=== PATIENT | male | born 1950 | race Caucasian/White ===

== ENCOUNTER 2016-11-10 15:53 | Outpatient (CLI) ==
--- NOTE | 2016-11-10 17:03 | DI ---
EXAM: Two views of the left knee. History: Left knee pain. Findings: No acute fracture or dislocation. Moderate to severe narrowing of the medial and patello femoral compartments with prominent osteophytes. Moderate narrowing of the lateral compartment. The re is probably chondrocalcinosis as well. Impression: No acute osseous abnormalities. Moderate to severe arthritis.
--- NOTE | 2016-11-10 17:05 | DI ---
EXAM: Two views of the right knee. History: Right knee pain. Findings: Moderate narrowing of the medial compartment with osteophytes. Moderate to severe narrow ing of the patellofemoral compartment with large osteophytes. Well corticated ossific density involv ing the anterior tibial tubercle with adjacent soft tissue swelling. Patellar enthesiopathy. Mild to moderate narrowing of the lateral compartment. Impression: 1. Tricompartmental osteoarthritis, most significant involving the patellofemoral joint. 2. Well corticated ossific density involving the anterior tibial tubercle most likely related to ol d trauma. There is adjacent soft tissue swelling.
== END 2016-11-10 15:54 | disposition home or self-care (01) ==
LOC: RAD 15:53
PROVIDERS: ATTEND Nurse Practitioner
DX: M25.562 Pain in left knee (principal); M25.561 Pain in right knee

== ENCOUNTER 2018-06-01 10:13 | Outpatient (CLI) | payer OTHER ==
--- NOTE | 2018-06-02 05:32 | MRI ---
EXAM: Lumbar spine MRI without contrast. HISTORY: Chronic low back pain. COMPARISON: Lumbar spine radiographs 05/31/2010. TECHNIQUE: Multiplanar, multisequence MR images were acquired of the lumbar spine without contrast. FINDINGS: Conus medullaris ends at T12-L1 and has normal morphology and signal intensity. Five lumb ar-type vertebra are present. There is mild accentuation of the usual lumbar lordosis and 1.5 mm ant erolisthesis of T11 on T12 and L3 on L4, 3.5 mm retrolisthesis of L4 on L5 and 1.1 cm anterolisthesis of L5 on S1 due to chronic bilateral L5 pars interarticularis defects. There is mild hypoplasia of the L5 vertebra that is greatest dorsally. There is mild endplate irregularity at T10-11 and T11-12. There is a diffuse disc osteophyte complex with moderate to marked disc space narrowing that is asy mmetric to the right with mild to moderate endplate irregularity, small chronic Schmorl's nodes and m oderate modic type 1 changes along the right anterolateral endplates. At L5-S1, there is a diffuse d isc osteophyte complex with bilateral far lateral endplate osteophytes, larger on the left which encr oach on both exiting L5 nerves and there is marked posterior disc space narrowing with mild endplate irregularity and modic type 2 endplate changes. Benign intraosseous hemangiomas are present at L1, L 2, L4 and S1. The partially visualized liver and left kidney are unremarkable. There is a possible simple cyst in the upper pole of the right kidney. T11-12: There is anterolisthesis of T11 on T12 and there is a mild diffuse disc bulge with a more fo stephany central component that mildly indents the ventral conus medullaris. Mild bilateral hypertrophic facet arthropathy and ligamentum flavum hypertrophy is present which narrows the posterolateral theca l sac and causes mild spinal stenosis and mild bilateral foraminal stenosis. AP diameter of the thec al sac is 8 mm. T12-L1: The intervertebral disc is normal. A small lobular synovial cyst is present along the poste rior left facet joint. L1-2: The intervertebral disc is normal. There is a minor irregular concavity along the right blayne n of the L1 inferior endplate. There is no central canal stenosis or foraminal stenosis. L2-3: There is a minor disc bulge that may be physiologic and minor focal concavity of the left L2 i nferior endplate. Mild left greater than right facet hypertrophy is present and there is minor left neural foraminal stenosis. L3-4: There is a mild diffuse disc bulge and mild to moderate bilateral hypertrophic facet arthropat hy and ligamentum flavum hypertrophy which narrows the posterolateral thecal sac without spinal steno sis. There is minor right and mild left neural foraminal stenosis. L4-5: There is retrolisthesis of L4 and L5 and there is a moderate diffuse spondylotic disc bulge wi th a probable small left posterolateral disc protrusion that has partially herniated into the left L5 superior endplate. There are right lateral/far lateral endplate osteophytes that narrows the inferi or right neural foramen and encroach on the exiting right L4 nerve. Mild bilateral hypertrophic facet arthropathy and ligamentum flavum hypertrophy is present. There is mild to moderate left and modera te right neural foraminal stenosis. There is no central canal stenosis. L5-S1: There is anterolisthesis of L5 on S1 which produces a pseudodisc bulge. Mild right and mild to moderate left hypertrophic facet arthropathy and ligamentum flavum hypertrophy is present. There is severe bilateral foraminal stenosis with compression of both L5 nerves. There is no central canal stenosis. IMPRESSION: 1. No change 3.5 mm retrolisthesis of L4 on L5 and 1.1 cm anterolisthesis L5 on S1 due to chronic bi lateral L5 pars interarticularis defects. 2. Mild lumbar degenerative spondylosis and facet arthropathy. 3. Moderate discogenic disease L4-5 with moderate right foraminal stenosis and encroachment on the r ight L4 nerve. 4. Severe bilateral foraminal stenosis L5-S1 with compression of both L5 nerves.
== END 2018-06-01 10:14 | disposition home or self-care (01) ==
LOC: RAD 10:13
PROVIDERS: ATTEND Family Medicine
DX: M54.41 Lumbago with sciatica, right side (principal); M54.42 Lumbago with sciatica, left side; G89.29 Other chronic pain